=== PATIENT | male | born 1960 | race Caucasian/White ===

== ENCOUNTER 2019-05-31 00:44 | Inpatient (IN) | payer OTHER ==
[~2019-05-31] VITALS: Ht 177.8 cm; Wt 63.5 kg
--- NOTE | 2019-05-31 01:00 | NUR ---
BIBA FROM [facility] FOR EVALUATION OF SOB, N/V X 2 HRS. PT W/ TRACH AND GT. SATTING 91-92% ON 10 LPM OF O2 VIA TRACH MASK. AFERILE. WILL CONT TO MONITOR ,
--- NOTE | 2019-05-31 01:13 | NUR ---
PT WAS PLACED ON VENT W/ 100% O2. SATTING 96%. WILL CONT TO MONITOR ,
[2019-05-31 01:31] LABS: LYMPHOCYTES # (AUTO) 0.9 /CMM (0.8-4.8); MONOCYTES # (AUTO) 0.3 /CMM (0.1-1.30); RED BLOOD CELL COUNT(AUTO) 4.68 MIL/uL (4.5-6.0)
[2019-05-31 01:35] LABS: BASOPHILS % (AUTO) 0.3 % (0.0-2.0); EOSINOPHILS % (AUTO) 2.3 % (0.0-6.0); HEMATOCRIT 41 % (39-51); HEMOGLOBIN 13.5 g/dL (13.5-17.5); LYMPHOCYTES % (AUTO) 8.5 % (20.0-44.0); MEAN CORPUSCULAR HGB CONC 33 g/dl (31.0-36.0); MEAN CORPUSCULAR VOLUME 87 fL (80-96); NEUTROPHILS # (AUTO) 9.5 /CMM (1.8-8.9); NEUTROPHILS % (AUTO) 85.9 % (43.0-81.0); PLATELET COUNT (AUTO) 297 /CMM (150-450)
[2019-05-31 01:39] LABS: CALCIUM, SERUM 10.1 mg/dL (8.5-10.1); CARBON DIOXIDE 38 mmol/L (21-32); CHLORIDE 95 mmol/L (98-107); CREATININE 0.7 mg/dL (0.6-1.3); GLUCOSE 124 mg/dL (74-106); POTASSIUM 4.8 mmol/L (3.5-5.1); SODIUM SERUM 136 mmol/L (136-145); UREA NITROGEN, BLOOD 23 mg/dL (7-18)
[2019-05-31 01:51] LABS: ALANINE AMINOTRANSFERASE 117 U/L (12-78); ALBUMIN 3.5 g/dL (3.4-5.0); ALKALINE PHOSPHATASE 174 U/L (46-116); ASPARTATE AMINOTRANSFERASE 78 U/L (15-37); B-TYPE NATRIURETIC PEPTIDE 201 PG/ML (0-125); BILIRUBIN,DIRECT 0.1 mg/dL (0.0-0.2); BILIRUBIN,TOTAL 0.2 mg/dL (0.2-1.0); TOTAL PROTEIN, SERUM 9.7 g/dL (6.4-8.2)
[2019-05-31] MEDS ORDERED: AMLO5TAB9 GT (02:13)
[2019-05-31] MEDS ORDERED: ATOR40TA GT (02:13)
[2019-05-31] MEDS ORDERED: LOSA50TA39 GT (02:13)
[2019-05-31] MEDS ORDERED: POTA20PA34 GT (02:13)
[2019-05-31] MEDS ORDERED: LANS30CA56 GT (02:13)
[2019-05-31] MEDS ORDERED: ASPI-1169 GT (02:13)
[2019-05-31] MEDS ORDERED: ALPR0.5T GT (02:13)
[2019-05-31] MEDS ORDERED: METO50TA16 GT (02:13)
--- NOTE | 2019-05-31 02:21 | NUR ---
RT AT THE BED SIDE FOR ABG DRAW
[2019-05-31 02:27] LABS: ABG BASE EXCESS 10.3 mmol/L; ABG OXYGEN SATURATION 97.8 % (92.0-98.5); ABG PCO2 61.4 mmHg (35.0-45.0); ABG PO2 118.4 mmHg (75.0-100.0); AaDO2 533.2 mmHg; COHb 0.1 % (0.5-1.5); MetHb 0.3 % (0.0-1.5); O2Hb 97.4 % (94.0-97.0); SITE, ABG Right Brachial
[2019-05-31] MEDS ORDERED: methylPREDNISolone SOD SUCC 125 MG/2ML VIAL ONE (04:59)
[2019-05-31] MEDS ORDERED: methylPREDNISolone SOD SUCC 125 MG/2ML VIAL IV ONE (05:00)
--- NOTE | 2019-05-31 05:51 | NUR ---
PT WAS TRANSFERRED TO 112 UNDER ACLS
[2019-05-31 06:00] VITALS: BP 130/83
[2019-05-31] MEDS ORDERED: Z GUARD REMEDY 2 OZ OINT TP PRN (06:00)
[2019-05-31] MEDS ORDERED: MAG HYDROX/AL HYDROX/SIMETH 30 ML UDC PO PRN (06:00)
[2019-05-31] MEDS ORDERED: ONDANSETRON HCL/PF 4 MG/2 ML VIAL IVP PRN (06:00)
[2019-05-31] MEDS ORDERED: MAGNESIUM HYDROXIDE 30 ML UDC PO PRN (06:00)
[2019-05-31] MEDS ORDERED: ACETAMINOPHEN 325 MG TABLET PO PRN (06:00)
--- NOTE | 2019-05-31 07:10 | NUR ---
0555 Received patient from ED via ACLS with trach and bagged by RT.Chief complaints of shortness of breath ,nausea and vomiting x 3 hrs.Dx:COPD exacerbation.H/O Cardiac arrest, Respiratory Failure with trach,PNA,GT,Renal Failure.Patient awake alert and oriented x 3. VS stable.SR per tele monitoring.Vent settings AC=14,TV= 450,FIO2=50%,PEEP=5.No distress noted.Denies pain.Saline lock RAC intact.Inc of urine.Kept clean and dry.Bed bath rendered.Admission assessment done.Report given to CANDI for AMBROSE.
[2019-05-31] MEDS ORDERED: PANTOPRAZOLE 40 MG/PACK PACK GT SCH (07:30)
--- NOTE | 2019-05-31 07:30 | NUR ---
JIMMY RN NOTES RECEIVED PT. IN BED. PT. IS AWAKE, ALERT AND ORIENTED X2-3, PT. IS ABLE TO MOUTH WORDS. PT. WITH SHILEY 8 TRACH TO MECHANICAL VENT, SETTING ORDERED. BREATHING EVEN AND UNLABORED TOLERATING VENT SETTINGS, IV AVVESS TO RAC G 20 PATENT AND INTACT WITH D5W @ 60ML/HR INFUSING WELL. WITH GTF CLAMPED AT THIS TIME. NO RESIDUAL NOTED AT THIS TIME. SAFETY AND ASPIRATION PRECAUTIONS IMPLEMENTED AND IN PLACE. BED LOCKED AND IN LOWEST POSITION, SIDE RAILS UP X3, BED ALARM ON, CALL LIGHT WITHIN REACH, WILL CONTINUE TO MONITOR. Addendum: 05/31/19 at 1939 by CANDI MONTENEGRO RN CORRECTION: IV ACCESS TO RAC G 20 PATENT AND INTACT WITH NS @ 60ML/HR INFUSING WELL.
[2019-05-31 08:00] VITALS: BP 114/82
[2019-05-31] MEDS: ALBUTEROL FS 2.5 MG/0.5 ML VIAL.NEB NEB SCH ×3 (08:03→19:50)
[2019-05-31] MEDS: IPRATROPIUM NEB FS 0.5 MG/2.5 ML AMPUL.NEB NEB SCH ×3 (08:03→19:50)
[2019-05-31] MEDS: LOSARTAN POTASSIUM 50 MG TABLET GT SCH (08:48)
[2019-05-31] MEDS: AMLODIPINE BESYLATE 5 MG TABLET GT SCH (08:48)
[2019-05-31] MEDS: ASPIRIN 81 MG TAB.CHEW GT SCH (08:48)
--- NOTE | 2019-05-31 09:30 | NUR ---
RN NOTES DUE MED GIVEN
[2019-05-31] MEDS: ESOMEPRAZOLE MAGNESIUM 40 MG SUSPDR.PKT GT SCH (10:01)
[2019-05-31] MEDS: IV NS 0.9% 1,000 ML IV PRN (11:22)
[2019-05-31 12:00] VITALS: BP 135/94
[2019-05-31] MEDS: methylPREDNISolone SOD SUCC 40 MG/ML VIAL IV SCH ×2 (14:27→20:31)
--- NOTE | 2019-05-31 15:55 | NUR ---
RN NOTES PLACED A CALL TO [facility], SPOKE WITH THEIR CHARGE NURSE RE NEXT OF KIN, PER THEM PATIENT DOES NOT HAVE ONE HE CAME FROM [facility]. ALSO PATIENT THEY SAID IS ALERT ORIENTED AND ABLE TO SIGN FOR HIMSELF. ALSO FAX NUMBER GIVEN TO THEM AND THEY WILL FAX MEDICAL RECORDS.
[2019-05-31 16:00] VITALS: BP 115/75
--- NOTE | 2019-05-31 16:00 | NUR ---
RN NOTES PER [employer]ISH OFFICE SUPPORT CLERK, TO KEEP THE PATIENT NPO FOR NOW.
--- NOTE | 2019-05-31 19:30 | NUR ---
RN NOTES RECEIVED PATIENT AWAKE AOX 2- 3 ABLE TO MAKE KNOWN NEEDS. WITH TRACH SHILEY 8 CONNECTED TO VENT SETTING AC14, TV 450 FIO2 40% PEEP 5 TOLERATED WELL. SR ON TELE MONITOR. IV SITE ON LFA G 22 WITH NS @ 60 ML/HR INTACT AND PATENT. NO ACUTE RESPIRATORY DISTRESS BUT PATIENT IS FEELING THAT HE DIDN'T GET ENOUGH OXYGEN FORM HIS VENT SATURATION 97%. WAVE FORM FROM VENT IS GOOD. CALLED RT TO ASSESS THE PATIENT AND TO CHANGE CANNULA. PER RT NOTHING WAS WRONG WITH THE VENT. CANNULA CHANGED SUCTIONED PATIENT NO SECRETION PRESENT, ANTI ANXIETY MEDS WILL BE GIVEN ORDERED. COMFORTING PATIENT EXPLAINED ABOUT THE SITUATION. KEPT PT CLEAN AND DRY. WILL CONTINUE TO MONITOR.
--- NOTE | 2019-05-31 19:35 | NUR ---
JIMMY RN CLOSING NOTES PT. IN BED RESTING. PT. IS AWAKE, ALERT AND ORIENTED X2-3, PT. IS ABLE TO MOUTH WORDS. PT. WITH SHILEY 8 TRACH TO MECHANICAL VENT, SETTING ORDERED. BREATHING EVEN AND UNLABORED TOLERATING VENT SETTINGS, IV ACCESS TO LEFT FA G 22 PATENT AND INTACT WITH NS @ 60ML/HR INFUSING WELL. WITH GTF CLAMPED AT THIS TIME. NO RESIDUAL NOTED AT THIS TIME. SAFETY AND ASPIRATION PRECAUTIONS IMPLEMENTED AND IN PLACE. BED LOCKED AND IN LOWEST POSITION, SIDE RAILS UP X3, BED ALARM ON, CALL LIGHT WITHIN REACH, ALL NEEDS MET FOR NOW. ENDORSED TO NEXT SHIFT FOR AMBROSE. PATIENT FOR HIDA SCAN YOKO. CONSENT SIGNED.
[2019-05-31 20:00] VITALS: BP 136/99
[2019-05-31] MEDS: ALPRAZOLAM 0.5 MG TABLET GT PRN (20:31)
[2019-05-31] MEDS: HYDROCODONE/APAP 5/325MG 1 EACH TABLET PO PRN (20:41)
[2019-06-01] VITALS (7 sets, daily range): BP systolic 91–131; BP diastolic 52–85
[2019-06-01] MEDS: methylPREDNISolone SOD SUCC 40 MG/ML VIAL IV SCH ×2 (05:05→13:29)
[2019-06-01] MEDS: HYDROCODONE/APAP 5/325MG 1 EACH TABLET PO PRN (05:10)
[2019-06-01] MEDS: IV NS 0.9% 1,000 ML IV PRN (05:10)
[2019-06-01] MEDS: ALPRAZOLAM 0.5 MG TABLET GT PRN ×3 (05:11→23:09)
--- NOTE | 2019-06-01 06:50 | NUR ---
RN NOTES PATIENT ASLEEP WELL ON BED. TRACH AND VENT TOLERATED WELL. BREATHING EVEN AND UNLABORED. COMPLAINING OF SOB DESPITE OF SATURATION 97% EDUCATED PATIENT REGARDING SATURATION AND VENT SETTING. GENERALIZED BODY PAIN AND ANXIETY NOTED. PRN MEDICINE GIVEN ORDERED AND REMAINED EFFECTIVE. AFEBRILE. VSS. INCONTINENT CARE DONE NO BM ON THIS SHIFT. OFFLOADED EXT WITH PILLOWS. PATIENT WILL HAVE [facility]PATO BILIARY HIDA SCAN FOR CBD DILATION ON MALATHI. KEPT PT CLEAN AND DRY. ALL DUE MEDS GIVEN ORDERED. WILL ENDORSED CONTINUITY OF CARE TO AM NURSE.
[2019-06-01 07:29] LABS: BASOPHILS % (AUTO) 0.2 % (0.0-2.0); HEMATOCRIT 31 % (39-51); HEMOGLOBIN 10.2 g/dL (13.5-17.5); LYMPHOCYTES # (AUTO) 0.7 /CMM (0.8-4.8); LYMPHOCYTES % (AUTO) 3.4 % (20.0-44.0); MEAN CORPUSCULAR HGB CONC 33 g/dl (31.0-36.0); MEAN CORPUSCULAR VOLUME 87 fL (80-96); MONOCYTES # (AUTO) 0.8 /CMM (0.1-1.30); MONOCYTES % (AUTO) 3.8 % (2.0-12.0); NEUTROPHILS # (AUTO) 18.9 /CMM (1.8-8.9); NEUTROPHILS % (AUTO) 92.6 % (43.0-81.0); PLATELET COUNT (AUTO) 228 /CMM (150-450); WHITE BLOOD COUNT (AUTO) 20.4 K/uL (4.3-11.0)
--- NOTE | 2019-06-01 07:30 | NUR ---
JIMMY RN AM NOTES RECEIVED PT. IN BED. PT. IS AWAKE, ALERT AND ORIENTED X2-3, PT. IS ABLE TO MOUTH WORDS. PT. WITH SHILEY 8 TRACH TO MECHANICAL VENT, SETTING ORDERED. BREATHING EVEN AND UNLABORED TOLERATING VENT SETTINGS, IV ACCESS TO LEFT FA G22 PATENT AND INTACT WITH NS@ 60ML/HR INFUSING WELL. WITH GTF CLAMPED AT THIS TIME. NO RESIDUAL NOTED AT THIS TIME. SAFETY AND ASPIRATION PRECAUTIONS IMPLEMENTED AND IN PLACE. BED LOCKED AND IN LOWEST POSITION, SIDE RAILS UP X3, BED ALARM ON, CALL LIGHT WITHIN REACH, WILL CONTINUE TO MONITOR.
[2019-06-01] MEDS: ALBUTEROL FS 2.5 MG/0.5 ML VIAL.NEB NEB SCH ×3 (07:38→19:38)
[2019-06-01] MEDS: IPRATROPIUM NEB FS 0.5 MG/2.5 ML AMPUL.NEB NEB SCH ×3 (07:38→19:38)
[2019-06-01 07:42] LABS: ALBUMIN 2.8 g/dL (3.4-5.0); BILIRUBIN,DIRECT 0.1 mg/dL (0.0-0.2); BILIRUBIN,TOTAL 0.4 mg/dL (0.2-1.0); CALCIUM, SERUM 8.7 mg/dL (8.5-10.1); CREATININE 0.7 mg/dL (0.6-1.3); MAGNESIUM 2.2 mg/dL (1.8-2.4); PHOSPHORUS 3.5 mg/dL (2.5-4.9); POTASSIUM 4.5 mmol/L (3.5-5.1); TOTAL PROTEIN, SERUM 7.9 g/dL (6.4-8.2)
[2019-06-01 07:49] LABS: THYROID STIMULATING HORMONE 3.325 uIU/mL (0.358-3.74)
--- NOTE | 2019-06-01 08:27 | NUR ---
WOUND CARE CONSULT: PT PRESENTS WITH LEFT HIP UNSTAGEABLE ULCER, PRESENT ON ADMISSION. RECOMMEND SURGICAL CONSULT. DR AMERICA AMOS NOTIFIED OF CONSULT REQUEST. RECOMMENDATIONS MADE FOR WOUND CARE AND SKIN PROTECTION. DISCUSSED WITH NURSING STAFF. FIRST STEP LOW AIRLOSS MATTRESS ORDERED. WILL SEE PRN. RODRIGUES IN AGREEMENT WITH PLAN OF CARE. CURRENT TONIA SCORE IS 11. Addendum: 06/01/19 at 0829 by SHABNAM SIDDIQUI WNDNU Amended: Links added.
[2019-06-01] MEDS ORDERED: HYDROGEL DRESSING 90 GM TUBE TP PRN (08:30)
[2019-06-01] MEDS: LOSARTAN POTASSIUM 50 MG TABLET GT SCH (09:00)
[2019-06-01] MEDS: AMLODIPINE BESYLATE 5 MG TABLET GT SCH (09:00)
--- NOTE | 2019-06-01 09:30 | NUR ---
RN NOTES DUE MED GIVEN
[2019-06-01] MEDS: ASPIRIN 81 MG TAB.CHEW GT SCH (09:47)
[2019-06-01] MEDS: ESOMEPRAZOLE MAGNESIUM 40 MG SUSPDR.PKT GT SCH (09:47)
[2019-06-01] MEDS: HYDROGEL DRESSING 90 GM TUBE TP SCH (09:49)
--- NOTE | 2019-06-01 10:45 | NUR ---
RN NOTES PATIENT PICKED UP FOR HIDA SCAN
--- NOTE | 2019-06-01 12:12 | NUR ---
[facility]
[2019-06-01] MEDS ORDERED: PIPERACILLIN /TAZOBACTAM 3.375 G in IV D5W 50 ML IV ONE (13:00)
[2019-06-01] MEDS: ENOXAPARIN SODIUM 40 MG/0.4 ML DISP.SYRIN SQ SCH (13:29)
[2019-06-01 17:39] LABS: ABG BASE EXCESS 2.9 mmol/L; ABG OXYGEN SATURATION 94.8 % (92.0-98.5); ABG PCO2 49.6 mmHg (35.0-45.0); ABG PO2 82.3 mmHg (75.0-100.0); AaDO2 218.4 mmHg; COHb 0.3 % (0.5-1.5); MetHb 0.9 % (0.0-1.5); O2Hb 93.7 % (94.0-97.0); SITE, ABG Left Radial
--- NOTE | 2019-06-01 19:05 | NUR ---
JIMMY RN OPENING NOTES PATIENT SLEEPING IN BED, HOWEVER EASY TO AROUSE, A/OX2. PT ABLE TO MOUTH WORDS. PT ON BILATERAL SOFT WRIST RESTRAINTS FOR PT SAFETY, PULSES WNL. ON TELE MONITOR ST WITH HR 100'S. WITH SHILEY 8 TRACH TO MECHANICAL VENT, SETTING ORDERED. BREATHING EVEN AND UNLABORED TOLERATING VENT SETTINGS, SATURATING 97%. NO RESPIRATORY OR CARDIAC DISTRESS NOTED AT THE MOMENT. IV SITE LEFT FA #22, FLUSHING AND PATENT, IV FLUIDS RUNNING @ 60ML/HR NO INFILTRATION NOTED. PT NPO PER HOSPITALIST ORDER. GTF CLAMPED, NO RESIDUAL NOTED AT THIS TIME. SAFETY MEASURES IN PLACE; ASPIRATION PRECAUTIONS IN PLACE, BED LOCKED AND IN LOWEST POSITION, SIDE RAILS UP X3, BED ALARM ON, CALL LIGHT WITHIN REACH, HOB ELEVATED. WILL CONT TO MONITOR PT.
--- NOTE | 2019-06-01 19:14 | NUR ---
JIMMY RN CLOSING NOTES PT. IN BED RESTING. PT. IS AWAKE, ALERT AND ORIENTED X2-3, PT. IS ABLE TO MOUTH WORDS. PT. WITH SHILEY 8 TRACH TO MECHANICAL VENT, SETTING ORDERED. BREATHING EVEN AND UNLABORED TOLERATING VENT SETTINGS, IV ACCESS TO LEFT FA G 22 PATENT AND INTACT WITH NS @ 60ML/HR INFUSING WELL. WITH GTF CLAMPED AT THIS TIME. NO RESIDUAL NOTED AT THIS TIME. SAFETY AND ASPIRATION PRECAUTIONS IMPLEMENTED AND IN PLACE. BED LOCKED AND IN LOWEST POSITION, SIDE RAILS UP X3, BED ALARM ON, CALL LIGHT WITHIN REACH, ALL NEEDS MET FOR NOW. ENDORSED TO NEXT SHIFT FOR AMBROSE. FOR URINE COLLECTION PER [employer]DALENA PARISH RAILROAD REPAIRER, REMAIN ON NPO FOLLOW UP RESULT OF HIDA SCAN DONE TODAY.
[2019-06-01] MEDS: PIPERACILLIN /TAZOBACTAM 3.375 G in IV D5W 100 ML IV SCH (20:16)
[2019-06-01] MEDS: MUPIROCIN OINT 2% 22 GM TUBE SCH (20:17)
[2019-06-02] VITALS: BP 109/71
[2019-06-02 04:00] VITALS: BP 102/63
[2019-06-02] MEDS: PIPERACILLIN /TAZOBACTAM 3.375 G in IV D5W 100 ML IV SCH ×3 (04:48→20:32)
[2019-06-02] MEDS: IV NS 0.9% 1,000 ML IV PRN (04:50)
[2019-06-02 06:49] LABS: APPEARANCE,URINE Clear (CLEAR); BILIRUBIN,URINE Negative (NEGATIVE); BLOOD, URINE Trace-lysed Ery/uL (NEGATIVE); COLOR,URINE Yellow (YELLOW); KETONES,URINE Negative (NEGATIVE); LEUKOCYTE ESTERASE ,URINE Negative (NEGATIVE); NITRITE, URINE Negative (NEGATIVE); PH,URINE 5.5 (5.0-8.0); PROTEIN,URINE Negative (NEGATIVE); UGLUCOSE Negative (NEGATIVE); UROBILINOGEN,URINE 0.2 EU/dL (0.2)
[2019-06-02] MEDS: ALBUTEROL FS 2.5 MG/0.5 ML VIAL.NEB NEB SCH ×3 (06:50→19:14)
[2019-06-02] MEDS: IPRATROPIUM NEB FS 0.5 MG/2.5 ML AMPUL.NEB NEB SCH ×3 (06:51→19:14)
--- NOTE | 2019-06-02 07:16 | NUR ---
JIMMY RN CLOSING NOTES PATIENT IN BED, AWAKE, A/OX2-3. PT ABLE TO MOUTH WORDS. 1:1 SITTER AT BEDSIDE FOR PT SAFETY. ON TELE MONITOR ST WITH HR 100'S. WITH SHILEY 8 TRACH TO MECHANICAL VENT, SETTING ORDERED. BREATHING EVEN AND UNLABORED TOLERATING VENT SETTINGS, SATURATING 97%. NO RESPIRATORY OR CARDIAC DISTRESS NOTED AT THE MOMENT. IV SITE LEFT FA #22, FLUSHING AND PATENT, IV ATB RUNNING ORDERED, INFILTRATION NOTED. PT NPO PER HOSPITALIST ORDER. GTF CLAMPED, NO RESIDUAL NOTED. SAFETY MEASURES IN PLACE; ASPIRATION PRECAUTIONS IN PLACE, BED LOCKED AND IN LOWEST POSITION, SIDE RAILS UP X3, BED ALARM ON, CALL LIGHT WITHIN REACH, HOB ELEVATED. ENDORSED TO AM RN FOR AMBROSE.
[2019-06-02 07:19] LABS: BACTERIA,URINE None seen /HPF (None Seen); RBC,URINE 0-2 /HPF (0-2); SQUAMOUS EPITHELIAL CELL,UR Few /HPF (None Seen); URIC ACID CRYSTALS,URINE Few /HPF (None Seen); WBC,URINE 0-2 /HPF (0-3)
--- NOTE | 2019-06-02 07:30 | NUR ---
JIMMY RN NOTES PT RECEIVED IN BED; PT A/OX4. ABLE TO MAKE NEEDS KNOWN BY WRITING. HOB ELEVATED 45 DEG. O2 SAT 92% ON MECH VENT TO TRACH. SETTINGS MD ORDERED. NO S/SX OF RESP DISTRESS. PT C/O PAIN 06/[address] 113. SITTER AT BEDSIDE; PT STILL TRYING TO PULL ON TRACH. LFA #22 NO S/SX OF INFILTRATION. INFUSING NS @60ML/HR. GT SITE PATENT/FLUSHED. PT NPO. SR UP x2. BED IN LOCKED/LOWEST POSITION. CONTACT PRECAUTIONS MAINTAINED. CALL LIGHT IN REACH.
[2019-06-02 07:49] LABS: BASOPHILS % (AUTO) 0.1 % (0.0-2.0); HEMATOCRIT 29 % (39-51); HEMOGLOBIN 9.7 g/dL (13.5-17.5); LYMPHOCYTES # (AUTO) 0.5 /CMM (0.8-4.8); LYMPHOCYTES % (AUTO) 4.2 % (20.0-44.0); MEAN CORPUSCULAR HGB CONC 33 g/dl (31.0-36.0); MEAN CORPUSCULAR VOLUME 88 fL (80-96); MONOCYTES # (AUTO) 0.5 /CMM (0.1-1.30); MONOCYTES % (AUTO) 4.2 % (2.0-12.0); NEUTROPHILS % (AUTO) 91.5 % (43.0-81.0); PLATELET COUNT (AUTO) 167 /CMM (150-450); RED BLOOD CELL COUNT(AUTO) 3.32 MIL/uL (4.5-6.0)
[2019-06-02 08:00] VITALS: BP 130/83
[2019-06-02 08:00] LABS: CALCIUM, SERUM 8.7 mg/dL (8.5-10.1); CREATININE 0.7 mg/dL (0.6-1.3); MAGNESIUM 1.8 mg/dL (1.8-2.4); PHOSPHORUS 2.2 mg/dL (2.5-4.9); POTASSIUM 3.9 mmol/L (3.5-5.1)
[2019-06-02] MEDS: HYDROGEL DRESSING 90 GM TUBE TP SCH (08:27)
[2019-06-02] MEDS: ESOMEPRAZOLE MAGNESIUM 40 MG SUSPDR.PKT GT SCH (08:28)
[2019-06-02] MEDS: ASPIRIN 81 MG TAB.CHEW GT SCH (08:28)
[2019-06-02] MEDS: HYDROCODONE/APAP 5/325MG 1 EACH TABLET PO PRN ×2 (08:29→14:59)
[2019-06-02] MEDS: AMLODIPINE BESYLATE 5 MG TABLET GT SCH (08:29)
[2019-06-02] MEDS: LOSARTAN POTASSIUM 50 MG TABLET GT SCH (08:29)
[2019-06-02] MEDS: methylPREDNISolone SOD SUCC 40 MG/ML VIAL IV SCH (08:30)
[2019-06-02] MEDS: ENOXAPARIN SODIUM 40 MG/0.4 ML DISP.SYRIN SQ SCH (08:32)
[2019-06-02] MEDS: MUPIROCIN OINT 2% 22 GM TUBE SCH ×2 (08:40→21:26)
[2019-06-02] MEDS ORDERED: Sodium Phosphate 7.5 MMOL in IV D5W 100 ML IV ONE (09:30)
[2019-06-02 12:00] VITALS: BP 108/74
[2019-06-02] MEDS: ALPRAZOLAM 0.5 MG TABLET GT PRN ×2 (12:43→22:06)
[2019-06-02] MEDS ORDERED: FEE PK DOSING 1 MIN EA MC ONE (13:38)
[2019-06-02] MEDS: VANCOMYCIN 1 GM in IV D5W 250 ML IV SCH ×2 (14:56→22:05)
[2019-06-02 16:00] VITALS: BP 100/64
--- NOTE | 2019-06-02 19:26 | NUR ---
RN OPENING NOTES PATIENT IN BED, AWAKE, A/OX3. PT ABLE TO MOUTH WORDS AND WRITE. 1:1 SITTER AT BEDSIDE FOR PT SAFETY, PER REPORT PT STILL TRYING TO PULL OUT TRACH, PSYCH CONS PENDING. ON TELE MONITOR SR WITH HR 90'S. WITH SHILEY 8 TRACH TO MECHANICAL VENT, SETTING ORDERED. BREATHING EVEN AND UNLABORED TOLERATING VENT SETTINGS, SATURATING 98%. NO RESPIRATORY OR CARDIAC DISTRESS NOTED AT THE MOMENT. IV SITE LEFT FA #22, FLUSHING AND PATENT, IV FLUIDS RUNNING ORDERED, NO INFILTRATION NOTED. PT NPO PER HOSPITALIST ORDER. GTF CLAMPED, FLUSHING AND PATENT, NO RESIDUAL NOTED. SAFETY MEASURES IN PLACE; ASPIRATION PRECAUTIONS IN PLACE, BED LOCKED AND IN LOWEST POSITION, SIDE RAILS UP X3, BED ALARM ON, CALL LIGHT WITHIN REACH, HOB ELEVATED. WILL CONT TO MONITOR PT.
[2019-06-02 20:00] VITALS: BP_SYST 103; BP_SYST 105; BP_DIAS 73
[2019-06-03] VITALS: BP 102/63
[2019-06-03 04:00] VITALS: BP 109/70
[2019-06-03] MEDS: PIPERACILLIN /TAZOBACTAM 3.375 G in IV D5W 100 ML IV SCH ×3 (04:34→20:04)
[2019-06-03] MEDS: VANCOMYCIN 1 GM in IV D5W 250 ML IV SCH ×2 (05:05→16:49)
--- NOTE | 2019-06-03 05:20 | NUR ---
RT NOTES TRACH TUBE IN PLACE, PATENT, AND SECURED WITH TRACH TIE. ALARMS ON AND AUDIBLE. VENT PLUGGED IN TO RED OUTLET. AMBU BAG AND BACK UP TRACH BY THE BEDSIDE. NO SIGNS OF ANY DISTRESS AT THIS TIME. Addendum: 06/03/19 at 0522 by NAZ COTTO RT Amended: Links added.
[2019-06-03] MEDS: IPRATROPIUM NEB FS 0.5 MG/2.5 ML AMPUL.NEB NEB SCH ×3 (06:57→19:07)
[2019-06-03] MEDS: ALBUTEROL FS 2.5 MG/0.5 ML VIAL.NEB NEB SCH ×3 (06:57→19:07)
--- NOTE | 2019-06-03 07:34 | NUR ---
RN CLOSING NOTES PATIENT IN BED, AWAKE, A/OX2-3. PT ABLE TO MOUTH WORDS AND WRITE. NO ACUTE CHANGES THROUGHOUT SHIFT. 1:1 SITTER AT BEDSIDE FOR PT SAFETY, PSYCH CONS PENDING. ON TELE MONITOR SR WITH HR 90'S. WITH SHILEY 8 TRACH TO MECHANICAL VENT, SETTING ORDERED. BREATHING EVEN AND UNLABORED TOLERATING VENT SETTINGS, SATURATING 98%. NO RESPIRATORY OR CARDIAC DISTRESS NOTED AT THE MOMENT. IV SITES LEFT FA #22 AND RIGHT WRIST #22, BOTH FLUSHING AND PATENT, IV FLUIDS RUNNING ORDERED, NO INFILTRATION NOTED. PT NPO PER HOSPITALIST ORDER. GTF CLAMPED, FLUSHING AND PATENT, NO RESIDUAL NOTED. SAFETY MEASURES IN PLACE; ASPIRATION PRECAUTIONS IN PLACE, BED LOCKED AND IN LOWEST POSITION, SIDE RAILS UP X3, BED ALARM ON, CALL LIGHT WITHIN REACH, HOB ELEVATED. ENDORSED TO AM RN FOR AMBROSE.
[2019-06-03 08:00] VITALS: BP 124/78
[2019-06-03] MEDS: ASPIRIN 81 MG TAB.CHEW GT SCH (08:34)
[2019-06-03] MEDS: ESOMEPRAZOLE MAGNESIUM 40 MG SUSPDR.PKT GT SCH (08:36)
[2019-06-03] MEDS: AMLODIPINE BESYLATE 5 MG TABLET GT SCH (08:36)
[2019-06-03] MEDS: ALPRAZOLAM 0.5 MG TABLET GT PRN (08:36)
[2019-06-03] MEDS: HYDROCODONE/APAP 5/325MG 1 EACH TABLET PO PRN (08:36)
[2019-06-03] MEDS: LOSARTAN POTASSIUM 50 MG TABLET GT SCH (08:37)
[2019-06-03] MEDS: ENOXAPARIN SODIUM 40 MG/0.4 ML DISP.SYRIN SQ SCH (08:39)
[2019-06-03] MEDS: MUPIROCIN OINT 2% 22 GM TUBE SCH ×2 (08:40→20:06)
[2019-06-03] MEDS: HYDROGEL DRESSING 90 GM TUBE TP SCH (08:40)
[2019-06-03 08:43] LABS: BASOPHILS % (AUTO) 0.1 % (0.0-2.0); EOSINOPHILS % (AUTO) 0.1 % (0.0-6.0); HEMATOCRIT 31 % (39-51); HEMOGLOBIN 10.2 g/dL (13.5-17.5); LYMPHOCYTES # (AUTO) 0.6 /CMM (0.8-4.8); LYMPHOCYTES % (AUTO) 5.5 % (20.0-44.0); MEAN CORPUSCULAR HGB CONC 33 g/dl (31.0-36.0); MEAN CORPUSCULAR VOLUME 88 fL (80-96); MONOCYTES # (AUTO) 0.6 /CMM (0.1-1.30); MONOCYTES % (AUTO) 5.5 % (2.0-12.0); NEUTROPHILS % (AUTO) 88.8 % (43.0-81.0); PLATELET COUNT (AUTO) 150 /CMM (150-450); RED BLOOD CELL COUNT(AUTO) 3.52 MIL/uL (4.5-6.0); WHITE BLOOD COUNT (AUTO) 10.1 K/uL (4.3-11.0)
[2019-06-03 08:49] LABS: CALCIUM, SERUM 8.7 mg/dL (8.5-10.1); CREATININE 0.6 mg/dL (0.6-1.3); MAGNESIUM 1.6 mg/dL (1.8-2.4); PHOSPHORUS 1.8 mg/dL (2.5-4.9); POTASSIUM 3.4 mmol/L (3.5-5.1)
[2019-06-03] MEDS ORDERED: methylPREDNISolone SOD SUCC 40 MG/ML VIAL IV SCH (09:00)
[2019-06-03] MEDS ORDERED: POTASSIUM CHLORIDE 20 MEQ TAB.PRT.SR PO SCH (10:30)
[2019-06-03] MEDS: Magnesium 1GM/D5W 100ML PREMIX 100 ML IV SCH ×2 (10:53→12:12)
[2019-06-03] MEDS ORDERED: OLANZAPINE 2.5 MG TABLET GT PRN (11:00)
[2019-06-03 12:00] VITALS: BP 108/67
[2019-06-03] MEDS ORDERED: Sodium Phosphate 7.5 MMOL in IV D5W 100 ML IV ONE (12:00)
[2019-06-03] MEDS: OLANZAPINE 2.5 MG TABLET GT SCH ×2 (12:59→16:32)
[2019-06-03] MEDS: JEVITY 1.2 CAL 1,000 ML BOTTLE GT PRN (15:26)
[2019-06-03 16:00] VITALS: BP 101/68
[2019-06-03] MEDS: IV NS 0.9% 1,000 ML IV PRN (16:26)
--- NOTE | 2019-06-03 18:07 | NUR ---
RN NOTE PT CO ABOUT CREDIT CARD BEING STOLEN IN [facility]. PT WORRIES ABOUT IDENTITY THEFT, WANTS TO MAKE A CALL TO THE BANK TO LOCK HIS CARD. PT UNABLE TO COMMUNICATE DUE TO THE TRACH WITH THE BANK, BUT ABLE TO WRITE DOWN WHAT HE NEEDS, HE NEEDS HELP WITH THIS ISSUE. REQUEST TO SHALE PROCESSING TECHNICIAN MADE.
[2019-06-03 20:00] VITALS: BP 108/68
[2019-06-04] VITALS: BP 112/72
[2019-06-04] MEDS: HYDROCODONE/APAP 5/325MG 1 EACH TABLET PO PRN ×3 (00:29→20:10)
[2019-06-04] MEDS: VANCOMYCIN 1 GM in IV D5W 250 ML IV SCH ×3 (01:49→17:01)
[2019-06-04 04:00] VITALS: BP 110/70
[2019-06-04] MEDS: PIPERACILLIN /TAZOBACTAM 3.375 G in IV D5W 100 ML IV SCH ×3 (04:24→20:10)
--- NOTE | 2019-06-04 05:50 | NUR ---
PATIENT RECEIVED ON TRACH TO VENT WITH SETTINGS OF AC 14, 450 VT, 50%, +5. SUCTIONED FOR MINIMAL, THIN, WHITE SECRETIONS. GIVEN IN-LINE TREATMENT WITH NO ADVERSE REACTIONS. AMBU BAG AT BEDSIDE. VENT AND PULSE OXIMETER ALARMS AUDIBLE AND VISIBLE. VENT PLUGGED INTO RED OUTLET. Addendum: 06/04/19 at 0551 by DARIEN VILLATORO RT Amended: Links added.
[2019-06-04 06:26] LABS: BASOPHILS % (AUTO) 0.2 % (0.0-2.0); HEMATOCRIT 26 % (39-51); HEMOGLOBIN 8.7 g/dL (13.5-17.5); LYMPHOCYTES # (AUTO) 0.7 /CMM (0.8-4.8); LYMPHOCYTES % (AUTO) 11.3 % (20.0-44.0); MEAN CORPUSCULAR HGB CONC 33 g/dl (31.0-36.0); MEAN CORPUSCULAR VOLUME 87 fL (80-96); MONOCYTES # (AUTO) 0.4 /CMM (0.1-1.30); NEUTROPHILS % (AUTO) 81.5 % (43.0-81.0); PLATELET COUNT (AUTO) 159 /CMM (150-450); RED BLOOD CELL COUNT(AUTO) 3.01 MIL/uL (4.5-6.0); WHITE BLOOD COUNT (AUTO) 6.1 K/uL (4.3-11.0)
[2019-06-04 06:48] LABS: CALCIUM, SERUM 8.3 mg/dL (8.5-10.1); CREATININE 0.6 mg/dL (0.6-1.3); MAGNESIUM 1.8 mg/dL (1.8-2.4); PHOSPHORUS 2.1 mg/dL (2.5-4.9); POTASSIUM 4.2 mmol/L (3.5-5.1)
--- NOTE | 2019-06-04 07:30 | NUR ---
RN OFFICE AM NOTES PT. IN BED, AWAKE, ALERT AND ORIENTED X2-3, PT. IS ABLE TO MOUTH WORDS. WRITES DOWN ON PAPER TO COMMUNICATE, PT. WITH SHILEY 8 TRACH TO MECHANICAL VENT, SETTING ORDERED. BREATHING EVEN AND UNLABORED TOLERATING VENT SETTINGS, IV ACCESS TO LEFT FA G 22 PATENT AND INTACT WITH NS @ 60ML/HR INFUSING WELL. RT WRIST G 22 IV ACCESS, FLUSHES WELL, BOTH SITES CLEAR. WITH GTF JEVITY 1.2 AT 45 ML/HR GOAL IS 70 ML/HR.CHECKED FOR PLACEMENT. NO RESIDUAL NOTED AT THIS TIME. SAFETY AND ASPIRATION PRECAUTIONS IMPLEMENTED AND IN PLACE. BED LOCKED AND IN LOWEST POSITION, SIDE RAILS UP X3, BED ALARM ON, CALL LIGHT WITHIN REACH, ALL NEEDS MET FOR NOW. WILL CONT TO MONITOR.
[2019-06-04 08:00] VITALS: BP 130/72
[2019-06-04] MEDS: IPRATROPIUM NEB FS 0.5 MG/2.5 ML AMPUL.NEB NEB SCH ×3 (08:04→19:31)
[2019-06-04] MEDS: ALBUTEROL FS 2.5 MG/0.5 ML VIAL.NEB NEB SCH ×3 (08:04→19:31)
[2019-06-04] MEDS ORDERED: NEUTRA PHOS 1 POWD.PACKET NG ONE (09:00)
[2019-06-04] MEDS ORDERED: methylPREDNISolone SOD SUCC 40 MG/ML VIAL IV SCH (09:00)
[2019-06-04] MEDS: ESOMEPRAZOLE MAGNESIUM 40 MG SUSPDR.PKT GT SCH (09:23)
[2019-06-04] MEDS: ASPIRIN 81 MG TAB.CHEW GT SCH (09:24)
[2019-06-04] MEDS: LOSARTAN POTASSIUM 50 MG TABLET GT SCH (09:25)
[2019-06-04] MEDS: AMLODIPINE BESYLATE 5 MG TABLET GT SCH (09:25)
[2019-06-04] MEDS: HYDROGEL DRESSING 90 GM TUBE TP SCH (09:26)
[2019-06-04] MEDS: ENOXAPARIN SODIUM 40 MG/0.4 ML DISP.SYRIN SQ SCH (09:28)
--- NOTE | 2019-06-04 09:30 | NUR ---
RN NOTES DUE MEDS GIVEN
[2019-06-04] MEDS: MUPIROCIN OINT 2% 22 GM TUBE SCH ×2 (09:32→20:11)
[2019-06-04] MEDS: IV NS 0.9% 1,000 ML IV PRN (11:01)
[2019-06-04 12:00] VITALS: BP 112/75
[2019-06-04] MEDS: ALPRAZOLAM 0.5 MG TABLET GT PRN (15:40)
[2019-06-04 16:00] VITALS: BP_SYST 126; BP_SYST 139; BP_DIAS 80; BP_DIAS 83
--- NOTE | 2019-06-04 16:43 | NUR ---
RT Patient received trach'd and on ventilator with ordered settings. Vent is plugged into the red outlet w bmv @ hob. Patient suctioned and hhn treatment given with no adverse reactions. Patient is stable. No respiratory distress noted through out shift. Will pass on report to security shift manager RT. Addendum: 06/04/19 at 1823 by SANDY CANO RT Amended: Links added.
[2019-06-04] MEDS ORDERED: OLANZAPINE 2.5 MG TABLET GT SCH (17:00)
--- NOTE | 2019-06-04 18:50 | NUR ---
ICU MANAGER CLOSING NOTES PT. IN BED, AWAKE, ALERT AND ORIENTED X2-3, PT. IS ABLE TO MOUTH WORDS. WRITES DOWN ON PAPER TO COMMUNICATE, PT. WITH SHILEY 8 TRACH TO MECHANICAL VENT, SETTING ORDERED. BREATHING EVEN AND UNLABORED TOLERATING VENT SETTINGS, IV ACCESS TO LEFT FA G 22 PATENT AND INTACT WITH NS @ 60ML/HR INFUSING WELL. RT WRIST G 22 IV ACCESS, FLUSHES WELL, BOTH SITES CLEAR. WITH GTF JEVITY 1.2 AT 45 ML/HR GOAL IS 70 ML/HR.CHECKED FOR PLACEMENT. NO RESIDUAL NOTED AT THIS TIME. SAFETY AND ASPIRATION PRECAUTIONS IMPLEMENTED AND IN PLACE. BED LOCKED AND IN LOWEST POSITION, SIDE RAILS UP X3, BED ALARM ON, CALL LIGHT WITHIN REACH, ALL NEEDS MET FOR NOW. WILL ENDORSE TO NEXT SHIFT
--- NOTE | 2019-06-04 19:31 | NUR ---
PT RCVD TRACH'D SHILEY 8 ON VENT WITH NOTED SETTINGS. PT IS ALERT AND AWAKE. PT IS STABLE .BREATHING TX GIVEN PER MD'S ORDER. NO ADVERSE REACTION NOTED. NO RESPIRATORY DISTRESS NOTED. RISK ASSESSMENT CONSULTANT DONE. VENT PLUGGED INTO RED OUTLET, ALARMS SET AND AUDIBLE, AMBU BAG AT BEDSIDE. WILL CONTINUE TO MONITOR THE PT FOR ANY CHANGES.
--- NOTE | 2019-06-04 19:44 | NUR ---
SPRAYING MACHINE OPERATOR NOTES RECEIVED PT ON BED. A/O X [facility]. [facility] NO RESPIRATORY DISTRESS NOTED. ON TELE MONITOR SR. IV ACCESS ON LFA G22 WITH NS @60CC/HR. IV LINE PATENT AND INTACT. GTUBE FEEDING RUNNING @ 45CC/HR WITH RESIDUAL NOTED @ 30CC. HEAD OF BED ELEVATED. SIDE RAILS UP. CALL LIGHT WITHIN REACH. BED ALARM ON. WILL MONITOR PT CLOSELY.
[2019-06-04 20:00] VITALS: BP 103/74
[2019-06-05] VITALS: BP_SYST 93; BP_SYST 98; BP_DIAS 65
[2019-06-05] MEDS: JEVITY 1.2 CAL 1,000 ML BOTTLE GT PRN ×2 (00:27→13:33)
[2019-06-05] MEDS: VANCOMYCIN 1 GM in IV D5W 250 ML IV SCH ×3 (00:27→16:19)
[2019-06-05] MEDS: IV NS 0.9% 1,000 ML IV PRN (01:10)
[2019-06-05] MEDS: PIPERACILLIN /TAZOBACTAM 3.375 G in IV D5W 100 ML IV SCH ×2 (03:42→12:56)
[2019-06-05 04:00] VITALS: BP 123/79
[2019-06-05] MEDS: ALPRAZOLAM 0.5 MG TABLET GT PRN (04:05)
--- NOTE | 2019-06-05 07:05 | NUR ---
RN NOTES RECEIVED PT ON BED. A/O X 3. TRACH/ VENT DEPENDENT, [facility] , TOLERATING CURRENT VENT SETTING WELL, NO RESPIRATORY DISTRESS NOTED. ON TELE MONITOR SR. L FA IV G22 WITH NS @60CC/HR RUNNING SITE CLEAN, DRY AND INTACT, G TUBE FEEDING RUNNING @ 45CC/HR WITH RESIDUAL NOTED @ 40CC. HEAD OF BED ELEVATED. SIDE RAILS UP 3. CALL LIGHT WITHIN EASY REACH, BED LOCKED AND IN LOWEST POSITION, CONTINUE TO MONITOR .
--- NOTE | 2019-06-05 07:07 | NUR ---
FOUNDRY FINISHER NOTES NO ACUTE CHANGES NOTED DURING THE SHIFT. PROVIDED COMFORT AND SAFETY. NO RESPIRATORY DISTRESS NOTED. WILL ENDORSE TO THE AM NURSE FOR CONTINUITY OF CARE.
[2019-06-05] MEDS: ALBUTEROL FS 2.5 MG/0.5 ML VIAL.NEB NEB SCH ×2 (07:40→12:37)
[2019-06-05] MEDS: IPRATROPIUM NEB FS 0.5 MG/2.5 ML AMPUL.NEB NEB SCH ×2 (07:40→12:37)
[2019-06-05 08:00] VITALS: BP 108/71
[2019-06-05] MEDS: ASPIRIN 81 MG TAB.CHEW GT SCH (08:11)
[2019-06-05] MEDS: AMLODIPINE BESYLATE 5 MG TABLET GT SCH (08:13)
[2019-06-05] MEDS: ENOXAPARIN SODIUM 40 MG/0.4 ML DISP.SYRIN SQ SCH (08:15)
[2019-06-05] MEDS: MUPIROCIN OINT 2% 22 GM TUBE SCH (08:18)
[2019-06-05] MEDS: HYDROGEL DRESSING 90 GM TUBE TP SCH (08:18)
[2019-06-05] MEDS: ESOMEPRAZOLE MAGNESIUM 40 MG SUSPDR.PKT GT SCH (08:23)
[2019-06-05] MEDS: OLANZAPINE 2.5 MG TABLET GT SCH ×2 (08:23→16:18)
[2019-06-05] MEDS: LOSARTAN POTASSIUM 50 MG TABLET GT SCH (08:23)
[2019-06-05 08:37] LABS: CREATININE 0.5 mg/dL (0.6-1.3); MAGNESIUM 1.6 mg/dL (1.8-2.4); PHOSPHORUS 1.9 mg/dL (2.5-4.9)
[2019-06-05] MEDS ORDERED: methylPREDNISolone SOD SUCC 40 MG/ML VIAL IV SCH (09:00)
[2019-06-05 09:02] LABS: BASOPHILS % (AUTO) 0.1 % (0.0-2.0); EOSINOPHILS % (AUTO) 0.7 % (0.0-6.0); HEMATOCRIT 27 % (39-51); HEMOGLOBIN 8.9 g/dL (13.5-17.5); LYMPHOCYTES # (AUTO) 0.8 /CMM (0.8-4.8); LYMPHOCYTES % (AUTO) 11.4 % (20.0-44.0); MEAN CORPUSCULAR HGB CONC 33 g/dl (31.0-36.0); MEAN CORPUSCULAR VOLUME 89 fL (80-96); MONOCYTES # (AUTO) 0.5 /CMM (0.1-1.30); MONOCYTES % (AUTO) 6.3 % (2.0-12.0); NEUTROPHILS # (AUTO) 5.9 /CMM (1.8-8.9); NEUTROPHILS % (AUTO) 81.5 % (43.0-81.0); PLATELET COUNT (AUTO) 172 /CMM (150-450); RED BLOOD CELL COUNT(AUTO) 3.07 MIL/uL (4.5-6.0); WHITE BLOOD COUNT (AUTO) 7.3 K/uL (4.3-11.0)
--- NOTE | 2019-06-05 09:19 | NUR ---
WOUND CARE CONSULT: PT SEEN FOR TRACH SITE PARTIAL THICKNESS WOUND WHICH WAS ASSESSED BY NURSING STAFF AND MateoT. RECOMMENDATIONS MADE FOR WOUND CARE AND SKIN PROTECTION. DISCUSSED WITH NURSING STAFF, Daily AND DR AMERICA AMOS, SURGEON CURRENTLY ON CASE. PT MUCH MORE ALERT NOW AND SITTING UP IN BED COMMUNICATING WELL BY WRITING AND MOUTHING WORDS. WILL SEE PRN. RODRIGUES IN AGREEMENT WITH PLAN OF CARE. Addendum: 06/05/19 at 0921 by SHABNAM SIDDIQUI WNDNU Amended: Links added.
[2019-06-05] MEDS: Magnesium 1GM/D5W 100ML PREMIX 100 ML IV SCH ×2 (10:30→11:43)
[2019-06-05] MEDS: NEOMY SULF/BACITRAC ZN/POLY 15 GM TUBE TP SCH ×2 (10:38→16:22)
[2019-06-05] MEDS ORDERED: NEUTRA PHOS 1 POWD.PACKET NG ONE (11:30)
[2019-06-05 12:00] VITALS: BP 100/64
--- NOTE | 2019-06-05 12:00 | NUR ---
RN NOTES PT STABLE, NO DISTRESS NOTED, CONTINUE TO MONITOR.
[2019-06-05] MEDS ORDERED: NEOM15OI3 TP (12:40)
[2019-06-05] MEDS ORDERED: OLAN2.5T3 GT ×2 (12:40)
[2019-06-05] MEDS ORDERED: MUPI22OI7 (12:40)
[2019-06-05] MEDS ORDERED: LACT1CAP72 GT (12:40)
[2019-06-05] MEDS ORDERED: AMOX-427 PO (12:40)
[2019-06-05] MEDS ORDERED: ALBU1.257 NEB (12:45)
[2019-06-05] MEDS ORDERED: PRED20TA PO (12:45)
[2019-06-05] MEDS ORDERED: IPRA0.2S9 NEB (12:45)
--- NOTE | 2019-06-05 15:53 | NUR ---
RN NOTES FIO2 TO 40% BY RT, O2 SAT 99%, NO SOB NOTED, PT WATCHING TV , REPORT GIVEN TO [facility], SPOKEN TO PATO THURSTON . PT STABLE, CONTINUE TO MONITOR. Addendum: 06/05/19 at 1837 by JEANNINE SCHMITZ RN FIO2 DECREASED TO 40%
[2019-06-05 16:00] VITALS: BP 132/91
[2019-06-05] MEDS ORDERED: LACTOBACILLUS RHAMNOSUS GG 1 EACH CAP.SPRINK GT SCH (17:00)
--- NOTE | 2019-06-05 17:56 | NUR ---
RT Patient received trach'd and on ventilator with ordered settings. Vent is plugged into the red outlet w bmv @ hob. Patient suctioned and hhn treatment given with no adverse reactions. Patient is stable. No respiratory distress noted through out shift. Will pass on report to police shift commander RT. Addendum: 06/05/19 at 1835 by SANDY CANO RT Amended: Links added.
--- NOTE | 2019-06-05 18:35 | NUR ---
RN NOTES VSS STABLE, NO DISTRESS NOTED ON THIS SHIFT, PT [place]ANG FIO2 AT 40%, NO SOB NOTED, WILL ENDOSE TO WELDER PLASMA ARC NURSE FOR CONTINUITY OF CARE .
[2019-06-05] MEDS: HYDROCODONE/APAP 5/325MG 1 EACH TABLET PO PRN (19:53)
--- NOTE | 2019-06-05 20:03 | NUR ---
LINE MAINTAINER NOTES PATIENT DISCHARGED TO [facility]. ALL DISCHARGE PAPERS GIVEN & SIGNED.
[2019-06-06] MEDS ORDERED: HYDR-4384 GT (13:38)
[2019-06-06] MEDS ORDERED: MAGN400O6 GT (13:38)
[2019-06-06] MEDS ORDERED: ACET-868 GT (13:38)
[2019-06-06] MEDS ORDERED: MAG30ORA GT (13:38)
== END 2019-06-05 20:55 | DRG 130 ==
LOC: ER 00:46 → TELE-TD 05:16 → TELE1 06-02 09:58
PROVIDERS: ADMIT Registered Nurse; ATTEND Student in an Organized Health Care Education/Training Program
PROC: 5A1955Z Respiratory Ventilation, Greater than 96 Consecutive Hours (ICD-10-PCS; principal; 2019-05-31)
DX: J95.851 Ventilator associated pneumonia (principal); A41.9 Sepsis, unspecified organism; G92 Toxic encephalopathy; R40.3 Persistent vegetative state; L89.220 Pressure ulcer of left hip, unstageable; J96.21 Acute and chronic respiratory failure with hypoxia; Z99.11 Dependence on respirator [ventilator] status; Z93.0 Tracheostomy status; F05 Delirium due to known physiological condition; J96.22 Acute and chronic respiratory failure with hypercapnia; Z86.74 Personal history of sudden cardiac arrest; R13.10 Dysphagia, unspecified; J44.1 Chronic obstructive pulmonary disease with (acute) exacerbation; N18.9 Chronic kidney disease, unspecified; Z87.01 Personal history of pneumonia (recurrent); Y84.8 Other medical procedures as the cause of abnormal reaction of the patient, or of later complication, without mention of misadventure at the time of the procedure; D64.9 Anemia, unspecified; I12.9 Hypertensive chronic kidney disease with stage 1 through stage 4 chronic kidney disease, or unspecified chronic kidney disease; J44.0 Chronic obstructive pulmonary disease with (acute) lower respiratory infection; Z93.1 Gastrostomy status; Z22.322 Carrier or suspected carrier of Methicillin resistant Staphylococcus aureus; F41.9 Anxiety disorder, unspecified; K83.8 Other specified diseases of biliary tract; Y83.3 Surgical operation with formation of external stoma as the cause of abnormal reaction of the patient, or of later complication, without mention of misadventure at the time of the procedure; Y72.8 Miscellaneous otorhinolaryngological devices associated with adverse incidents, not elsewhere classified; Y92.129 Unspecified place in nursing home as the place of occurrence of the external cause
CPT/HCPCS: 31720; 36415; 36600; 71045-TC; 74018; 76700-TC; 78226; 80048-TC; 80053-TC; 80061-TC; 80076-TC; 80202-TC; 81000-TC; 82803-TC; 83735-TC; 83880; 84100-TC; 84443-TC; 84484-TC; 85025-TC; 87040-TC; 87081-TC; 87086-TC; 94003-TC; 94760-TC; 94762-TC; 94799-TC; 99082-TC; A4349; A4623; A6248; A6403; A9537; A9563; G0378; J1650; J2543; J2920; J2930; J3370; J3475; J7030; J7060

== ENCOUNTER 2019-06-06 12:38 | Emergency (ER) | payer OTHER ==
[~2019-06-06] VITALS: Ht 172.7 cm; Wt 64.4 kg
[~2019-06-06 12:38] MED LIST: ALBU1.257 NEB; ALPR0.5T GT; AMLO5TAB9 GT; AMOX-427 PO; ASPI-1169 GT; ATOR40TA GT; IPRA0.2S9 NEB; LACT1CAP72 GT; LANS30CA56 GT; LOSA50TA39 GT; METO50TA16 GT; MUPI22OI7; NEOM15OI3 TP; OLAN2.5T3 GT; POTA20PA34 GT; PRED20TA PO
--- NOTE | 2019-06-06 12:43 | NUR ---
PT BIB [facility] ,FACILITY STAFF CALLED FOR A CLOGGED G TUBE, PT IS AAOX1, NOT IN RESPIRATORY DISTRESS, ON MECH VENT VIA TRACH, HOOKED TO MONITOR, KEPT RESTED AND COMFORTABLE, WILL CONTINUE TO MONITOR.
--- NOTE | 2019-06-06 13:06 | NUR ---
AT BEDSIDE FOR EVAL.
--- NOTE | 2019-06-06 13:13 | NUR ---
G TUBE REPLACED BY .
--- NOTE | 2019-06-06 13:21 | NUR ---
ARRANGED BLS TRANSPORT (WITH RT) WITH [facility], TRIP NUMBER [id number], ETA 45 MINS.
[2019-06-06] MEDS ORDERED: DIATR MEGLU/DIATRIZOATE SODIUM 30 ML BOTTLE (GASTROGRAPHIN) ONE (13:30)
[2019-06-06] MEDS ORDERED: DIATR MEGLU/DIATRIZOATE SODIUM 30 ML BOTTLE (GASTROGRAPHIN) PO ONE (13:30)
[2019-06-06] MEDS ORDERED: HYDR-4384 GT (13:38)
[2019-06-06] MEDS ORDERED: MAG30ORA GT (13:38)
[2019-06-06] MEDS ORDERED: MAGN400O6 GT (13:38)
[2019-06-06] MEDS ORDERED: ACET-868 GT (13:38)
--- NOTE | 2019-06-06 13:38 | NUR ---
MOBILE TESTER AT BEDSIDE FOR XRAY.
--- NOTE | 2019-06-06 14:27 | NUR ---
REPORT GIVEN TO EMT FOR REPORT.
--- NOTE | 2019-06-06 14:35 | NUR ---
SPOKED TO [facility] FOR PT TRANSFER BACK TO FACILITY.
[2019-06-06 14:39] VITALS: BP 145/84
== END 2019-06-06 14:40 ==
LOC: ER 12:40
DX: K94.23 Gastrostomy malfunction (principal); Z99.11 Dependence on respirator [ventilator] status; Z86.74 Personal history of sudden cardiac arrest; Z79.82 Long term (current) use of aspirin
CPT/HCPCS: 43762; 74018; 99284; Q9963 ×2